=== PATIENT | male | born 1980 | race Caucasian/White ===

== ENCOUNTER 2023-12-05 09:43 | Emergency (ER) | payer BC, SELFPAY ==
[2023-12-05 09:47] VITALS: BP 141/94
--- NOTE | 2023-12-05 11:27 | ED.GENMED ---
History of Present Illness
General
Chief Complaint: Anxiety
Source: patient
Exam Limitations: none
Time Seen by Provider: 12/05/23 10:10
Nursing documentation reviewed up to this point in time: agreed with
History of Present Illness
History of Present Illness:
The patient is a 43-year-old man with a past medical history of anxiety. Patient reports that he has not been on medication for anxiety in a long time. Patient reports that his anxiety has been under control up until 3 days ago when he started to
feel extremely anxious. Patient states he is not sure why. He denies any recent changes in his life. He denies any drug use. He denies stimulants, including caffeine. He reports he drinks alcohol rarely and he is a cigarette smoker. He denies
suicidal and homicidal thoughts. His reports that he is having panic attacks multiple times a day over the last 3 days. Patient is pacing around the room. He admits that he has been hyperventilating.
Past History
Past History
ED Past Medical History: Psychiatric (Anxiety)
ED Past Surgical History: Orthopedic
Social History
Tobacco: Smoker
Alcohol: Occasional
Drug: None
Personal:
Living: with family
Employment: Other
Family History
Family History: Other
Review of Systems
Review of Systems
Allergies reviewed?: Yes
All Other Systems: ROS reviewed and negative except as documented in HPI and ROS
Constitutional: Reports no symptoms
EENT: Reports no symptoms
Respiratory: Reports no symptoms
Cardiac: Reports chest pain and palpitations
ABD/GI: Reports no symptoms
: Reports no symptoms
Musculoskeletal: Reports no symptoms
Skin: Reports no symptoms
Neurological: Reports no symptoms
Endocrine: Reports no symptoms
Hematologic/Lymphatic: Reports no symptoms
Psychiatric: Reports no symptoms
Phy Exam
Physical Exam
Physical Exam:
Physical Exam
General: Patient appears anxious but cooperative. Pacing around room, diaphoretic
Neck: supple. no meningeal signs. normal psoterior pharynx
Heart: s1/s2 regular rate and rhythm, no murmur. equal radial pulses.
Lungs: no acute respiratory distress. clear bilaterally
Abdomen: normal bowel sounds. not tender. no CVAT
Neuro: alert and oriented. no focal neurological deficits
Skin: no rash
Psychiatric: well kept. interactive and cooperative
Extremities: no edema. no calf tenderness. negative homans. good distal pulses
Course
Orders/Labs/Results
Orders:
Orders
12/05/23 11:14
Alprazolam [Xanax] 1 mg PO NOW STA
12/05/23 11:16
Electrocardiogram (*1) Urgent
Reason for Study: Chest Pain
EKG- Treatment ONCE
12/05/23 11:17
Crisis Consult Urgent
Reason for Consult: panic attacks
12/05/23 11:42
Complete Blood Count/With Diff Urgent
Comprehensive Metabolic Panel Urgent
TSH Urgent
Troponin I Urgent
Urine Drug Abuse Screen Urgent
Date Specimen was Collected: 12/05/23
Time Specimen was Collected: 11:36
Abnormal Lab Results
12/05/23
11:42
Absolute Neuts (auto) 7.2 H 10^3/uL
(1.4-6.5)
Absolute Monos (auto) 0.8 H 10^3/uL
(0.1-0.6)
Neutrophils % 77.7 H %
(42.2-75.2)
Lymphocytes % 12.8 L %
(20.5-51.1)
U Marijuana (THC) Screen Positive H
(Negative)
12/05/23 11:42
12/05/23 11:42
Vital Signs
Initial and Last Documented VS:
Initial Vital Signs
Temp Pulse Resp BP Pulse Ox
97.6 F 94 18 141/94 97
12/05/23 09:47 12/05/23 09:47 12/05/23 09:47 12/05/23 09:47 12/05/23 09:47
Last Documented Vital Signs
Temp Pulse Resp BP Pulse Ox
97.6 F 94 18 141/94 97
12/05/23 09:47 12/05/23 09:47 12/05/23 09:47 12/05/23 09:47 12/05/23 09:47
MDM/Problems Addressed
Differential Diagnosis Includes:
Acute on chronic anxiety, panic disorder, hypothyroidism
MDM/Problems Addressed:
Patient presents with acute on chronic anxiety
Chronic conditions affecting care: Psychiatric illness
Acute Exacerbation and/or Progression of Chronic Illness: Psychiatric illness
*Pulse Oximetry
Patient hypoxic: no
*EKG
Interpreted by ED Provider?: Yes
Interpretation: abnormal
Comparison EKG: no changes
Rate: bradycardiac
Rhythm: sinus
[place]: normal axis
Interval: normal interval
QRS Pattern: normal QRS
Ischemia: non-specific ST changes
*Police Chief Deputy Interpretation
Rate: Police Chief Deputy- N/A
*Critical Care Note
Total Time (30-74mins, 75-104mins- exclusive of procedures): Not Applicable
Data Reviewed
Source: patient and spouse
Patient Management
Discussion with other providers: Other (Crisis team came to evaluate the patient. I asked psychiatrist, Dr. Márquez to evaluate the patient and she told me that she does not feel it is emergent and he can follow-up as an outpatient with either
psychiatry or his PCP)
Escalation/DeEscalation of care consider admission/obs:
Crisis team came to give patient resources. Patient has no lab finding to suggest dehydration, renal failure or hypothyroidism. Patient encouraged to follow-up with his primary care doctor to start the Lexapro.
ED Attending Note
-
Portions of this chart may have been created with voice recognition software.� Occasional wrong word or��sound alike� substitutions may have occurred due to the inherent limitations of voice recognition software.
Discharge Plan
Departure
Patient Disposition: Home (Routine Discharge)
Date of Disposition: 12/05/23
Time of Disposition: 13:34
Patient with high blood pressure during this ER visit?: Yes
Condition: Good
Discharge Problem:
Panic attacks
Instructions: Panic Disorder (DC), BLOOD PRESSURE
Prescriptions:
New
escitalopram oxalate [Lexapro] 10 mg tablet
10 mg PO DAILY Qty: 30 0RF
alprazolam [Xanax] 0.5 mg tablet
0.5 mg PO TID PRN (Reason: anxiety) Qty: 10 0RF
Referrals:
Anthony Weiner MD [Family Provider] -
Activity Restrictions/Additional Instructions:
Follow-up with your primary care doctor soon as possible to discuss being started on the Lexapro. You should take the Lexapro once a day. It may take about 2 weeks to start feeling the effects of the Lexapro. For acute severe anxiety, you can
take the Xanax
Interventions
Interventions:
*Risk Screen - Suicide Last Done: 12/05/23 09:52
*General Assessment Last Done: 12/05/23 09:52
*ED COVID-19 Vaccine History Last Done: 12/05/23 09:52
*Nursing Disposition Last Done: 12/05/23 14:12
ED-Psychological Assessment Last Done: 12/05/23 11:52
Discharge Date and Time
Discharge Date/Time: 12/05/23 14:15
Print Language: SETSWANA
[2023-12-05] MEDS: XANAX 1 MG PO (11:36)
[2023-12-05 11:43] VITALS: BMI 22.4
[2023-12-05 12:08] LABS: % Basophils 0.2 % (0-2); % Eosinophils 0.4 % (0-6); % Immature Granulocytes 0.3 % (0-0.5); % Lymphocytes 12.8 % (20.5-51.1); % Monocytes 8.6 % (1.7-9.3); % Neutrophils 77.7 % (42.2-75.2); Absolute Lymphocytes 1.2 10^3/uL (1.2-3.4); Absolute Monocytes 0.8 10^3/uL (0.1-0.6); Absolute Neutrophils 7.2 10^3/uL (1.4-6.5); Hematocrit 40.9 % (39.0-52.0); Hemoglobin 14.7 g/dL (13.0-18.0); Mean Corp Hgb Conc. 35.9 g/dL (33.0-37.0); Mean Corpuscular Hgb 30.9 pg (27.0-31.0); Mean Corpuscular Volume 86.1 fL (80.0-94.0); Mean Platelet Volume 10.1 fL (7.4-10.4); Nucleated Red Blood Cells % 0 % (-); Platelet Count 278 10^3/uL (130-400); Red Blood Cell Count 4.75 10^6/uL (4.70-6.10); Red Cell Dist. Width 12.6 % (11.5-14.5); White Blood Cell Count 9.3 10^3/uL (4.8-10.8)
[2023-12-05 12:25] LABS: ALT (SGPT) 17 U/L (0-50); AST (SGOT) 25 U/L (17-59); Albumin 4.9 g/dl (3.5-5.0); Alkaline Phosphatase 75 U/L (38-126); Blood Urea Nitrogen 13 mg/dl (9-20); Calcium 10.2 mg/dl (8.4-10.2); Carbon Dioxide 27 mmol/L (22-30); Chloride 103 mmol/L (98-107); Estimated Creatinine Clearance 101 ml/min; Glucose 86 mg/dl (70-99); Potassium 4.4 mmol/L (3.5-5.1); Sodium 138 mmol/L (135-145); Total Bilirubin 0.8 mg/dl (0.2-1.3); Total Protein 7.6 g/dl (6.3-8.2); eGFR > 60.00
[2023-12-05 12:37] LABS: Troponin I < 0.012 ng/ml
[2023-12-05 12:40] LABS: Amphetamines Negative (Negative); Barbiturates Negative (Negative); Benzodiazepines Negative (Negative); Buprenorphine Negative (Negative); Cocaine Negative (Negative); Marijuana Positive (Negative); Methadone Negative (Negative); Methamphetamines Negative (Negative); Opiates Negative (Negative); Phencyclidine Negative (Negative); Tricyclic Antidepressants Negative (Negative)
[2023-12-05 13:56] LABS: TSH 1.69 uIU/ml (0.47-4.68)
== END 2023-12-05 14:15 | disposition home or self-care (01) ==
LOC: EMR 09:43
PROVIDERS: EMERGENCY PHYSICIAN Emergency Medicine; FAMILY PHYSICIAN Family Medicine
DX: F41.0 Panic disorder [episodic paroxysmal anxiety] (principal); R06.4 Hyperventilation; R03.0 Elevated blood-pressure reading, without diagnosis of hypertension; F41.9 Anxiety disorder, unspecified; F17.210 Nicotine dependence, cigarettes, uncomplicated
CPT/HCPCS: 99283; 80053; 80306; 84443; 84484; 85025; 93005

== ENCOUNTER → 2025-03-24 09:17 | Outpatient (REF) | payer BC, SELFPAY ==
[2025-03-24 11:20] LABS: Hematocrit 45.1 % (39.0-52.0); Hemoglobin 14.9 g/dL (13.0-18.0); Mean Corp Hgb Conc. 33.0 g/dL (33.0-37.0); Mean Corpuscular Volume 95.3 fL (80.0-94.0); Nucleated Red Blood Cells % 0 % (-); Platelet Count 273 10^3/uL (130-400); Red Cell Dist. Width 13.2 % (11.5-14.5)
== END ==
LOC: CLAB 09:17
PROVIDERS: ATTENDING PHYSICIAN Family Medicine
DX: F41.9 Anxiety disorder, unspecified (principal); D72.828 Other elevated white blood cell count
CPT/HCPCS: 36415; 85025

== ENCOUNTER → 2025-03-25 11:19 | Outpatient (REF) | payer BC, SELFPAY | LOC: CLAB 11:19 | PROVIDERS: ATTENDING PHYSICIAN Physician Assistant Medical | DX: D48.5 Neoplasm of uncertain behavior of skin (principal) | CPT/HCPCS: 88305 ==